=== PATIENT | female | born 1980 | race Caucasian/White ===

== ENCOUNTER → 2019-05-03 | Outpatient (CLI) | payer OTHER | LOC: MHCPAIN 10:20 | DX: G89.29 Other chronic pain (principal); M47.817 Spondylosis without myelopathy or radiculopathy, lumbosacral region; M54.16 Radiculopathy, lumbar region; M53.3 Sacrococcygeal disorders, not elsewhere classified | CPT/HCPCS: G0463 ==

== ENCOUNTER → 2019-05-19 | Outpatient (CLI) | payer OTHER | LOC: MHCPAIN 09:34 | DX: M47.817 Spondylosis without myelopathy or radiculopathy, lumbosacral region (principal); M54.16 Radiculopathy, lumbar region | CPT/HCPCS: J1100; Q9967 ==

== ENCOUNTER → 2019-05-30 | Outpatient (CLI) | payer OTHER | LOC: MHCPAIN 10:33 | DX: G89.29 Other chronic pain (principal); M47.817 Spondylosis without myelopathy or radiculopathy, lumbosacral region; M54.16 Radiculopathy, lumbar region; M53.3 Sacrococcygeal disorders, not elsewhere classified | CPT/HCPCS: G0463 ==

== ENCOUNTER → 2019-06-16 | Outpatient (CLI) | payer OTHER | LOC: MHCPAIN 15:21 | DX: M51.26 Other intervertebral disc displacement, lumbar region (principal); M48.061 Spinal stenosis, lumbar region without neurogenic claudication | CPT/HCPCS: J1100; Q9967 ==

== ENCOUNTER → 2019-06-29 | Outpatient (CLI) | payer OTHER | LOC: MHCPAIN 10:03 | DX: M47.817 Spondylosis without myelopathy or radiculopathy, lumbosacral region (principal); M53.3 Sacrococcygeal disorders, not elsewhere classified | CPT/HCPCS: G0463 ==

== ENCOUNTER → 2019-07-21 | Outpatient (CLI) | payer OTHER | LOC: MHCPAIN 14:58 | DX: M54.5 Low back pain (principal) ==

== ENCOUNTER → 2019-07-28 | Outpatient (CLI) | payer OTHER | LOC: MHCPAIN 14:33 | DX: M54.5 Low back pain (principal) ==

== ENCOUNTER → 2019-08-25 | Outpatient (CLI) | payer OTHER | LOC: MHCPAIN 15:19 | DX: M54.5 Low back pain (principal) | CPT/HCPCS: G0463; J1100; J2250; J3010 ==

== ENCOUNTER → 2019-08-29 | Outpatient (CLI) | payer OTHER | LOC: MHCPAIN 12:28 | DX: M54.5 Low back pain (principal); M53.3 Sacrococcygeal disorders, not elsewhere classified | CPT/HCPCS: J1100; J2250; J3010 ==